=== PATIENT | male | born 1940 | race Caucasian/White ===

== ENCOUNTER 2016-11-24 11:55 | Emergency (ER) | payer MEDICARE ==
[~2016-11-24] VITALS: Ht 175.3 cm; Wt 92.7 kg
[2016-11-24] MEDS ORDERED: LISI40TAB PO (12:10)
[2016-11-24] MEDS ORDERED: ASPI1TAB PO (12:10)
[2016-11-24] MEDS ORDERED: ATOR40TA75 PO (12:10)
[2016-11-24] MEDS ORDERED: NIAC500C4 PO (12:10)
--- NOTE | 2016-11-24 13:09 | REP ---
Clinical: Trauma. Findings: Age-related atrophy and microvascular ischemic changes are appreciated. The ventricles and sulci are symmetric. Echevarria-white differentiation is maintained. There is no evidence for acute intracranial hemorrhage, mass/mass effect, pathology or infarction. No extra-axial fluid collection. Calvarium is intact. Paranasal sinuses and mastoid air cells are clear. Impression: Age related atrophy and microvascular ischemic changes. No acute intracranial hemorrhage, infarction, or mass/mass effect. Signed by Marcin Rowan MD 11/24/2016 01:01 P
[2016-11-24] MEDS ORDERED: LIDOCAINE 2% W/EPIN INJ 20ML **PRES FREE INJ ONE (13:30)
[2016-11-24] MEDS ORDERED: TETANUS/DIPHTHERIA TOX ADSORB ADULT 0.5ML SYR/VIAL (90714) IM ONE (13:30)
[2016-11-24] MEDS ORDERED: BACITRACIN OINT 30GM TOP PRN (14:30)
[2016-11-24 14:38] VITALS: BP 163/74
== END 2016-11-24 14:50 | disposition home or self-care (01) ==
LOC: M ED 11:55
DX: S01.93XA Puncture wound without foreign body of unspecified part of head, initial encounter (principal); Z72.0 Tobacco use; W01.198A Fall on same level from slipping, tripping and stumbling with subsequent striking against other object, initial encounter; Y92.007 Garden or yard of unspecified non-institutional (private) residence as the place of occurrence of the external cause; Y93.H9 Activity, other involving exterior property and land maintenance, building and construction; Y99.9 Unspecified external cause status